=== PATIENT | male | born 1990 | race American Indian/Alaskan Native ===

== ENCOUNTER 2016-07-27 16:29 | Emergency (ER) | payer SELFPAY ==
[2016-07-27 17:00] VITALS: BP 122/78
== END 2016-07-27 19:00 | disposition left against medical advice (07) ==
LOC: ED 16:29
DX: J02.9 Acute pharyngitis, unspecified (principal); M79.1 Myalgia; M54.9 Dorsalgia, unspecified; Z53.21 Procedure and treatment not carried out due to patient leaving prior to being seen by health care provider